=== PATIENT | male | born 1965 | race African-American/Black ===

== ENCOUNTER 2017-10-02 13:16 | Emergency (ER) | payer OTHER, SELFPAY ==
[2017-10-02 13:48] LABS: Hemoglobin 14.7 g/dL (14.0-18.0); Mean Corpuscular HGB CONC 34.9 g/dL (32.0-36.0); Mean Corpuscular Hemoglobin 34.3 pg (27.0-31.0); Mean Corpuscular Volume 98.3 fl (80.0-94.0); Mean Platelet Volume 9.3 fL (7.4-10.4); Platelet Count 177 thou/uL (130-400); RBC Distribution Width 11.5 % (11.5-14.5); Red Blood Cell (RBC) Count 4.27 mill/uL (4.70-6.10); White Blood Cell (WBC) Count 5.6 thou/uL (4.8-10.8)
--- NOTE | 2017-10-02 13:54 | RAD ---
CHEST 1 VIEW: HISTORY: Chest pain. Heart palpitations. COMPARISON: None. FINDINGS: Lungs are clear. No pneumothorax or effusion. Cardiac silhouette and mediastinal contours are withi n normal limits. IMPRESSION: 1. No acute intrathoracic abnormality. 2. Old right clavicular injury. POS: [facility]
[2017-10-02 14:07] LABS: ALT (SGPT) 17 U/L (8-55); AST (SGOT) 19 U/L (5-34); Albumin 4.5 g/dL (3.5-5.0); Alkaline Phosphatase 72 U/L (40-150); Anion Gap 11 mmol/L (10-20); BUN (Urea Nitrogen) 11 mg/dL (8.4-25.7); CK (CPK) 385 U/L (30-200); Calc. Creatinine Clearance 0 mL/min (70-130); Calcium 9.4 mg/dL (7.8-10.44); Carbon Dioxide 26 mmol/L (22-29); Chloride 106 mmol/L (98-107); Estimated GFR-MDRD 85; Globulin 2.8 g/dL (2.4-3.5); Glucose 110 mg/dL (70-105); Lipase 15 U/L (8-78); Potassium 4.3 mmol/L (3.5-5.1); Protein, Total 7.3 g/dL (6.0-8.3); Sodium 139 mmol/L (136-145)
[2017-10-02 14:10] LABS: CKMB 2.4 ng/mL (0-6.6); Troponin I Less than 0.010 ng/mL (< 0.028)
[2017-10-02 14:11] LABS: Band 1 % (5-11); Eosinophils 3 % (0-10); Lymphocytes 66 % (21-51); MDiff Complete? YES; Monocytes 4 % (0-10); Neutrophil 26 % (42-75); PLT Morphology Comment Appears Adequate
[2017-10-02 15:34] LABS: PTT 32.1 SEC (22.9-36.1); Prothrombin Time 23.2 SEC (12.0-14.7)
[2017-10-02] MEDS ORDERED: Fentanyl 100 MCG/2 ML VIAL ONE (16:35)
[2017-10-02] MEDS ORDERED: PROPOFOL 0 ML ONE (16:35)
[2017-10-02] MEDS ORDERED: PROPOFOL 20 ML ONE (17:31)
[2017-10-02] MEDS ORDERED: Ondansetron HCl/PF 4 MG/2 ML Vial ONE (17:45)
--- NOTE | 2017-10-08 20:24 | EKG ---
Test Reason : Blood Pressure : / mmHG Vent. Rate : 061 BPM Atrial Rate : 061 BPM P-R Int : 192 ms QRS Dur : 092 ms QT Int : 438 ms P-R-T Axes : 047 067 006 degrees QTc Int : 440 ms Normal sinus rhythm Normal ECG Confirmed by GEORGE BAKER ([id number]), managing editor KRYSTIN VELAZQUEZ ([id number]) on 10/08/2017 8:23:33 PM Referred By: AREN BAKER Confirmed By:GEORGE BAKER
--- NOTE | 2017-10-08 20:42 | EKG ---
Test Reason : PALPITATIONS Blood Pressure : / mmHG Vent. Rate : 096 BPM Atrial Rate : 242 BPM P-R Int : 000 ms QRS Dur : 078 ms QT Int : 164 ms P-R-T Axes : 206 077 000 degrees QTc Int : 207 ms Atrial flutter with variable A-V block Nonspecific ST and T wave abnormality Abnormal ECG Confirmed by MARLIN TOURE ([id number]), offline editor KRYSTIN VELAZQUEZ ([id number]) on 10/08/2017 8:41:23 PM Referred By: Confirmed By:MARLIN TOURE
== END 2017-10-02 18:53 | disposition home or self-care (01) ==
LOC: EDBD 13:16 → ERS 13:16
DX: I48.92 Unspecified atrial flutter (principal); E66.9 Obesity, unspecified; F17.290 Nicotine dependence, other tobacco product, uncomplicated; Z71.6 Tobacco abuse counseling; Z79.01 Long term (current) use of anticoagulants; Z79.899 Other long term (current) drug therapy
CPT/HCPCS: 71045; 80053; 82553; 83690; 84484; 85025; 85610; 85730; 93005; 96360; 99152; 99406; J2405; J2704; J3010